=== PATIENT | female | born 1985 | race Hispanic/Latino ===

== ENCOUNTER 2019-08-28 16:08 | Emergency (ER) | payer OTHER, SELFPAY ==
[2019-08-28 16:44] LABS: Basophils % 0.2 % (0-1.3); Hematocrit 37.4 % (36.0-45.0); Lymphocytes % 12.5 % (15.3-44.8); MPV 8.1 fL (7.6-11.3); RBC Red Blood Cell Count 4.04 M/uL (3.86-4.86)
[2019-08-28 17:03] LABS: Albumin 3.7 g/dL (3.4-5.0); Bilirubin Direct 0.1 mg/dL (0-0.2); Bilirubin Total 0.4 mg/dL (0.2-1.0); Potassium 3.1 mmol/L (3.5-5.1); Protein, Total 7.1 g/dL (6.4-8.2)
[2019-08-28 17:13] LABS: Urine Blood TRACE (NEG); Urine Glucose NEGATIVE (NEG); Urine Protein NEGATIVE (NEG); Urine Specific Gravity 1.015 (1.005-1.030)
[2019-08-28 17:14] LABS: Urine Mucus 1+ /HPF (NONE SEEN)
[2019-08-28 17:15] LABS: Urine Bacteria 20-50 /HPF (<20); Urine Culture Reflex Order REFLEXED; Urine RBC NONE SEEN /HPF (NONE SEEN)
[2019-08-28] MEDS ORDERED: ONDANSETRON 4 MG/2 ML VIAL ONE (17:29)
[2019-08-28] MEDS ORDERED: NA CHLORIDE 0.9% 1,000 ML ONE (17:29)
[2019-08-28] MEDS ORDERED: MORPHINE 4 MG/ML SYR ONE (17:29)
[2019-08-28] MEDS ORDERED: CEFTRIAXONE/SWI 1gm 1 GM/10 ML SYR ONE (17:55)
--- NOTE | 2019-08-28 18:26 | RAD REPORT ---
EXAM DESCRIPTION: CT - Abdomen Pelvis W Contrast - 08/28/2019 5:53 pm CLINICAL HISTORY: Abdominal pain COMPARISON: none. TECHNIQUE: Computed axial tomography of the abdomen pelvis was obtained. 100 cc Isovue-300 was admin istered intravenously. Oral contrast was not requested which limits evaluation of bowel. All CT scans are performed using dose optimization technique as appropriate and may include automated exposure control or mA/KV adjustment according to patient size. FINDINGS: The liver, spleen, pancreas, adrenal and kidneys appear unremarkable. Gallstones. The gallbladder is mildly distended. Gallbladder wall appears thickened. Mild to moderate thickening of the wall of the transverse colon. Mild thickening of the wall of the p roximal descending colon. Normal appendix Small central disc herniation L5-S1 IMPRESSION: Mild to moderate colitis Cholelithiasis. Thickened gallbladder wall may indicate cholecystitis
[2019-08-28] MEDS ORDERED: CIPROFLOXACIN HCL 500 MG TAB ONE (19:14)
[2019-08-28] MEDS ORDERED: metroNIDAZOLE 500 MG TABLET ONE (19:14)
[2019-08-28] MEDS ORDERED: POTASSIUM CL SA 10 MEQ TAB PO ONE (19:15)
--- NOTE | 2019-08-28 19:36 | ER ---
Nurse's Notes [facility] Name: Ashley Pratt Age: 34 yrs Sex: Female : 1985 Arrival Date: 08/28/2019 Time: 16:10 Bed 16 Private MD: Diagnosis: Colitis;Urinary tract infection, site not specified Presentation: 08/28 16:11 Presenting complaint: Patient states: LLQ abdominal pain since Friday, patient also aj1 reports bodyaches, diarrhea, abdominal cramping, and fever. Transition of care: patient was not received from another setting of care. Onset of symptoms was 2018. Risk Assessment: Do you want to hurt yourself or someone else? Patient reports no desire to harm self or others. Initial Sepsis Screen: Does the patient meet any 2 criteria? HR > 90 bpm. No. Patient's initial sepsis screen is negative. Does the patient have a suspected source of infection? Yes: Acute abdominal pain. Care prior to arrival: None. 16:11 Method Of Arrival: Ambulatory aj 16:11 Acuity: ANASTASIIA 3 aj1 Triage Assessment: 16:14 General: Appears in no apparent distress. comfortable, Behavior is calm, cooperative, aj1 appropriate for age. Pain: Complains of pain in left lower quadrant Pain currently is 6 out of 10 on a pain scale. Neuro: Level of Consciousness is awake, alert, obeys commands. Cardiovascular: Patient's skin is warm and dry. Respiratory: Airway is patent Respiratory effort is even, unlabored, Respiratory pattern is regular, symmetrical. GI: Reports lower abdominal pain, cramping, diarrhea. 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 - Social history:: Smoking status: Patient/guardian denies using tobacco. - Ebola Screening: : Patient denies travel to an Ebola-affected area in the 21 days before illness onset. Screenin:06 Abuse screen: Denies threats or abuse. Denies injuries from another. Nutritional rv screening: No deficits noted. Tuberculosis screening: No symptoms or risk factors identified. Fall Risk None identified. Assessment: 17:30 General: Appears in no apparent distress. uncomfortable, Behavior is calm, cooperative. rv 17:30 Pain: Complains of pain in left lower quadrant. Neuro: Level of Consciousness is awake, rv alert, obeys commands, Oriented to person, place, time, situation. GI: Abdomen is flat, non-distended, Bowel sounds present X 4 quads. Abd is soft and non tender X 4 quads. Derm: Skin is intact. Vital Signs: 16:14 BP 121 / 76; Pulse 103; Resp 20; Temp 98.8; Pulse Ox 100% on R/A; Weight 88.45 kg (R); aj1 Height 5 ft. 11 in. (180.34 cm) (R); 17:30 BP 111 / 73; Pulse 93; Resp 17; Pulse Ox 100% ; rv 17:30 BP 106 / 67; Pulse 92; Resp 18; Pulse Ox 100% ; rv 18:03 Pain 2/10; rv 16:14 Body Mass Index 27.20 (88.45 kg, 180.34 cm) aj1 ED Course: 16:10 Patient arrived in ED. rg4 16:13 Triage completed. aj1 16:14 Arm band placed on Patient placed in an exam room. aj1 16:16 Fco Arroyo PA is PHCP. jr8 16:16 Holli Marr MD is Attending Physician. jr8 16:24 Ga Flores, RUBENS is Primary Nurse. rv 17:20 Inserted saline lock: 20 gauge in left antecubital area, using aseptic technique. Blood rv collected. 17:54 CT Abd/Pelvis - IV Contrast Only In Process Unspecified. EDMS 18:07 Patient has correct armband on for positive identification. Bed in low position. Call rv light in reach. Side rails up X 1. Pulse ox on. NIBP on. 19:35 Hugo Smith MD is Referral Physician. jr8 20:47 No provider procedures requiring assistance completed. IV discontinued, intact, rv bleeding controlled, No redness/swelling at site. Pressure dressing applied. Administered Medications: 17:35 Drug: Zofran 4 mg Route: IVP; Site: left antecubital; rv 18:03 Follow up: Response: No adverse reaction rv 17:35 Drug: NS 0.9% 1000 ml Route: IV; Rate: 1000 ml; Site: left antecubital; rv 18:14 Follow up: IV Status: Completed infusion; IV Intake: 1000ml rv 17:37 Drug: morphine 4 mg {Note: rass 0.} Route: IVP; Site: left antecubital; rv 18:03 Follow up: Pain 2/10 Adult; Response: No adverse reaction; Marked relief of symptoms; rv Pain is decreased; RASS: Alert and Calm (0) 18:03 Drug: Rocephin 1 grams Route: IV; Rate: calculated rate; Site: left antecubital; rv 20:47 Follow up: IV Status: Completed infusion rv 19:18 Drug: Potassium Chloride 40 mEq Route: PO; rv 20:46 Follow up: Response: Medication administered at discharge. rv 19:19 Drug: Cipro 500 mg Route: PO; rv 20:47 Follow up: Response: No adverse reaction rv 19:19 Drug: Flagyl 500 mg Route: PO; rv 20:46 Follow up: Response: No adverse reaction rv Intake: 18:14 IV: 1000ml; Total: 1000ml. rv Outcome: 19:35 Discharge ordered by . kecia 20:29 Patient left the ED. aa1 20:47 Discharged to home ambulatory. rv 20:47 Condition: good 20:47 Discharge instructions given to patient, family, Instructed on discharge instructions, follow up and referral plans. medication usage, Demonstrated understanding of instructions, follow-up care, medications, Prescriptions given X 4. Signatures: Dispatcher [employer] Iris Lima RN RN aj1 Uzma Lopez RN RN aa1 Fco Arroyo PA PA jr8 Keeley Bethea rg4 Ga Flores RN RN rv
--- NOTE | 2019-08-28 19:36 | EDPHYS ---
Physician Documentation [facility] Name: Ashley Pratt Age: 34 yrs Sex: Female : 1985 Arrival Date: 08/28/2019 Time: 16:10 Bed 16 Private MD: ED Physician Holli Marr HPI: 08/28 19:36 This 34 yrs old Female presents to ER via Ambulatory with complaints of jr8 Abdominal Pain. 19:36 The patient presents with abdominal pain in the left lower quadrant. Onset: The jr8 symptoms/episode began/occurred acutely, 2 day(s) ago. The symptoms do not radiate. Associated signs and symptoms: Pertinent positives: diarrhea, fever, nausea. The symptoms are described as stabbing. Modifying factors: The symptoms are alleviated by nothing, the symptoms are aggravated by nothing. Severity of pain: At its worst the pain was moderate in the emergency department the pain is unchanged. The patient has not experienced similar symptoms in the past. The patient has not recently seen a physician. 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 - Social history:: Smoking status: Patient/guardian denies using tobacco. - Ebola Screening: : Patient denies travel to an Ebola-affected area in the 21 days before illness onset. ROS: 19:36 Eyes: Negative for injury, pain, redness, and discharge, ENT: Negative for injury, jr8 pain, and discharge, Neck: Negative for injury, pain, and swelling, Cardiovascular: Negative for chest pain, palpitations, and edema, Respiratory: Negative for shortness of breath, cough, wheezing, and pleuritic chest pain, Back: Negative for injury and pain, MS/Extremity: Negative for injury and deformity, Skin: Negative for injury, rash, and discoloration, Neuro: Negative for headache, weakness, numbness, tingling, and seizure. 19:36 Abdomen/GI: Positive for abdominal pain, nausea, diarrhea, Negative for vomiting, constipation, abdominal cramps, abdominal distension. Exam: 19:36 Eyes: Pupils equal round and reactive to light, extra-ocular motions intact. Lids and jr8 lashes normal. Conjunctiva and sclera are non-icteric and not injected. Cornea within normal limits. Periorbital areas with no swelling, redness, or edema. ENT: Nares patent. No nasal discharge, no septal abnormalities noted. Tympanic membranes are normal and external auditory canals are clear. Oropharynx with no redness, swelling, or masses, exudates, or evidence of obstruction, uvula midline. Mucous membranes moist. Neck: Trachea midline, no thyromegaly or masses palpated, and no cervical lymphadenopathy. Supple, full range of motion without nuchal rigidity, or vertebral point tenderness. No Meningismus. Cardiovascular: Regular rate and rhythm with a normal S1 and S2. No gallops, murmurs, or rubs. Normal PMI, no JVD. No pulse deficits. Respiratory: Lungs have equal breath sounds bilaterally, clear to auscultation and percussion. No rales, rhonchi or wheezes noted. No increased work of breathing, no retractions or nasal flaring. Back: No spinal tenderness. No costovertebral tenderness. Full range of motion. Skin: Warm, dry with normal turgor. Normal color with no rashes, no lesions, and no evidence of cellulitis. MS/ Extremity: Pulses equal, no cyanosis. Neurovascular intact. Full, normal range of motion. Neuro: Awake and alert, GCS 15, oriented to person, place, time, and situation. Cranial nerves II-XII grossly intact. Motor strength 5/5 in all extremities. Sensory grossly intact. Cerebellar exam normal. Normal gait. 19:36 Abdomen/GI: Inspection: abdomen appears normal, Bowel sounds: active, all quadrants, Palpation: soft, in all quadrants, moderate abdominal tenderness, in the left lower quadrant, mass, is not appreciated, rebound tenderness, is not appreciated, voluntary guarding, is elicited in all quadrants, involuntary guarding, is not appreciated, no appreciated organomegaly, Indicators: McBurney's point is not tender, Sloan's sign is negative, Rovsing's sign is negative, Liver: tenderness, is not appreciated. Vital Signs: 16:14 BP 121 / 76; Pulse 103; Resp 20; Temp 98.8; Pulse Ox 100% on R/A; Weight 88.45 kg (R); aj1 Height 5 ft. 11 in. (180.34 cm) (R); 17:30 BP 111 / 73; Pulse 93; Resp 17; Pulse Ox 100% ; rv 17:30 BP 106 / 67; Pulse 92; Resp 18; Pulse Ox 100% ; rv 18:03 Pain 2/10; rv 16:14 Body Mass Index 27.20 (88.45 kg, 180.34 cm) aj1 MDM: 16:17 Patient medically screened. jr8 19:33 Data reviewed: vital signs, nurses notes, lab test result(s), radiologic studies, CT jr8 scan. Data interpreted: Pulse oximetry: on room air is 100 %. Interpretation: normal. Counseling: I had a detailed discussion with the patient and/or guardian regarding: the historical points, exam findings, and any diagnostic results supporting the discharge/admit diagnosis, lab results, radiology results, the need for outpatient follow up, a family practitioner, a pyridine operator, to return to the emergency department if symptoms worsen or persist or if there are any questions or concerns that arise at home. ED course: Patient not vomiting. Able to tolerate pills and fluids. Will try at home. Close return precautions given . 08/28 16:14 Order name: Urine Culture formerly [facility], 1928–1983 08/28 16:14 Order name: Urine Microscopic Only; Complete Time: 17:31 w 08/28 16:16 Order name: Basic Metabolic Panel; Complete Time: 17:08 [facility] 08/28 16:16 Order name: CBC with Diff; Complete Time: 17:08 [facility] 08/28 16:16 Order name: Creatinine for Radiology; Complete Time: 17:08 [facility] 08/28 16:16 Order name: Hepatic Function; Complete Time: 17:08 [facility] 08/28 16:16 Order name: Lipase; Complete Time: 17:08 [facility] 08/28 17:08 Order name: CT Abd/Pelvis - IV Contrast Only; Complete Time: 19:06 [facility] 08/28 17:09 Order name: Urine Dipstick--Ancillary (enter results); Complete Time: 17:31 eb 08/28 17:09 Order name: Urine --Ancillary (enter results); Complete Time: 17:31 eb 08/28 16:14 Order name: Urine Test (obtain specimen); Complete Time: 18:05 w 08/28 16:14 Order name: Urine Dipstick-Ancillary (obtain specimen); Complete Time: 18:05 snw 08/28 16:16 Order name: IV Saline Lock; Complete Time: 18:05 jr8 08/28 16:16 Order name: Labs collected and sent; Complete Time: 18:05 jr8 Administered Medications: 17:35 Drug: Zofran 4 mg Route: IVP; Site: left antecubital; rv 18:03 Follow up: Response: No adverse reaction rv 17:35 Drug: NS 0.9% 1000 ml Route: IV; Rate: 1000 ml; Site: left antecubital; rv 18:14 Follow up: IV Status: Completed infusion; IV Intake: 1000ml rv 17:37 Drug: morphine 4 mg {Note: rass 0.} Route: IVP; Site: left antecubital; rv 18:03 Follow up: Pain 2/10 Adult; Response: No adverse reaction; Marked relief of symptoms; rv Pain is decreased; RASS: Alert and Calm (0) 18:03 Drug: Rocephin 1 grams Route: IV; Rate: calculated rate; Site: left antecubital; rv 20:47 Follow up: IV Status: Completed infusion rv 19:18 Drug: Potassium Chloride 40 mEq Route: PO; rv 20:46 Follow up: Response: Medication administered at discharge. rv 19:19 Drug: Cipro 500 mg Route: PO; rv 20:47 Follow up: Response: No adverse reaction rv 19:19 Drug: Flagyl 500 mg Route: PO; rv 20:46 Follow up: Response: No adverse reaction rv Disposition: 08/28/19 19:35 Discharged to Home. Impression: Colitis, Urinary tract infection, site not specified. - Condition is Stable. - Discharge Instructions: Urinary Tract Infection, Adult, Colitis. - Prescriptions for Cipro 500 mg Oral Tablet - take 1 tablet by ORAL route every 12 hours for 10 days; 20 tablet. Flagyl 500 mg Oral Tablet - take 1 tablet by ORAL route every 6 hours for 10 days; 40 tablet. Tylenol- Codeine #3 300-30 mg Oral Tablet - take 2 tablets by ORAL route every 6 hours As needed; 20 tablet. Zofran 4 mg Oral Tablet - take 1 tablet by ORAL route every 8 hours As needed; 20 tablet. - Medication Reconciliation Form, Thank You Letter, Antibiotic Education, Prescription Opioid Use form. - Follow up: Hugo Smith MD; When: 1 week; Reason: Recheck today's complaints, Continuance of care, Re-evaluation by your physician. - Problem is new. - Symptoms have improved. Addendum: 08/30/2019 15:16 Co-signature as Attending Physician, Holli Marr MD. m a2 Signatures: Dispatcher [employer] EDMS Iris Dhaliwal RN RN aj1 Uzma Lopez RN RN aa1 Armida Mcqueen, RESTAURANT RECRUITER-C RESTAURANT RECRUITER-Csnw Fco Arroyo PA PA jr8 Holli Marr MD MD ma2 Ga Flores RN RN rv Corrections: (The following items were deleted from the chart) 08/28 20:29 19:35 08/28/2019 19:35 Discharged to Home. Impression: Colitis; Urinary tract aa1 infection, site not specified. Condition is Stable. Forms are Medication Reconciliation Form, Thank You Letter, Antibiotic Education, Prescription Opioid Use. Follow up: Hugo Smith; When: 1 week; Reason: Recheck today's complaints, Continuance of care, Re-evaluation by your physician. Problem is new. Symptoms have improved. jr8
[2019-08-28 21:04] VITALS: TEMP 98.8; O2SAT 100
[2019-08-28 21:06] VITALS: BP 106/67
== END 2019-08-28 20:29 | disposition home or self-care (01) ==
LOC: ER 16:08
DX: N39.0 Urinary tract infection, site not specified (principal); K52.9 Noninfective gastroenteritis and colitis, unspecified
CPT/HCPCS: 36415; 74177; 80048; 80076; 81003; 81015; 81025; 83690; 85025; 87086; 87088; 96365; 96366; 96375; 99284; J0696; J2405; J7030; Q9967